=== PATIENT | male | born 1995 | race Caucasian/White ===

== ENCOUNTER 2023-11-01 22:44 | Emergency (ER) | payer SELFPAY ==
[2023-11-01 22:53] VITALS: TEMP 97.4
[2023-11-02 00:01] VITALS: BP 104/65; PULSE 72
== END 2023-11-02 00:01 | disposition home or self-care (01) ==
LOC: COL.ER 22:44
DX: S61.411A Laceration without foreign body of right hand, initial encounter (principal); Z23 Encounter for immunization; W26.8XXA Contact with other sharp object(s), not elsewhere classified, initial encounter; Y93.G1 Activity, food preparation and clean up; Y92.511 Restaurant or cafe as the place of occurrence of the external cause; Y99.0 Civilian activity done for income or pay